=== PATIENT | male | born 1965 | race Caucasian/White ===

== ENCOUNTER 2024-10-04 07:46 | Outpatient (CLI) | payer BC | END 2024-10-04 07:47 | disposition home or self-care (01) | LOC: BICCT 07:46 | PROVIDERS: ATTEND Student in an Organized Health Care Education/Training Program | DX: Z12.2 Encounter for screening for malignant neoplasm of respiratory organs (principal); J43.2 Centrilobular emphysema; J84.9 Interstitial pulmonary disease, unspecified; R91.1 Solitary pulmonary nodule; M47.9 Spondylosis, unspecified; J84.10 Pulmonary fibrosis, unspecified; Z87.891 Personal history of nicotine dependence | CPT/HCPCS: 71271 ==